=== PATIENT | female | born 1950 | race Hispanic/Latino ===

== ENCOUNTER → 2020-12-07 | Outpatient (CLI) | payer OTHER ==
[~2020-12-07] MED LIST: IOHEXOL 350 MG/ML 100ML INFUS..BTL IV ONE
== END | disposition home or self-care (01) ==
LOC: RAH 10:00
PROVIDERS: ATTEND Internal Medicine Cardiovascular Disease
DX: I65.21 Occlusion and stenosis of right carotid artery (principal); Z86.73 Personal history of transient ischemic attack (TIA), and cerebral infarction without residual deficits
CPT/HCPCS: 70498; Q9967

== ENCOUNTER 2021-01-19 05:56 | Day surgery (SDC) | payer OTHER ==
[2021-01-13 11:38] LABS: BASOPHILS % (AUTO) 1.2 % (0.0-5.0); HEMATOCRIT 42.8 % (36-48); LYMPHOCYTES % (AUTO) 31.4 % (21.0-51.0); MEAN CORPUSCULAR HEMOGLOBIN 32.4 pg (27.0-33.0); MEAN CORPUSCULAR HGB CONC 33.4 g/dL (32.0-36.0); MEAN CORPUSCULAR VOLUME 97.1 fL (79-99); PLATELET COUNT (AUTO) 249 K/uL (130-400); RED BLOOD CELL COUNT(AUTO) 4.41 MIL/uL (4.00-5.50); RED CELL DISTRIBUTION WIDTH 12.7 % (11.0-15.5); WHITE BLOOD COUNT (AUTO) 6.9 K/uL (4.8-10.8)
[2021-01-13 11:39] LABS: APPEARANCE,URINE Clear (CLEAR); BILIRUBIN,URINE Negative (NEGATIVE); COLOR,URINE Yellow (YELLOW); GLUCOSE, URINE (UA) Negative (NEGATIVE); KETONES,URINE Negative (NEGATIVE); LEUKOCYTE ESTERASE ,URINE Negative (NEGATIVE); NITRATE,URINE Negative (NEGATIVE); OCCULT BLOOD,URINE Moderate (NEGATIVE); PROTEIN,URINE Negative (NEGATIVE)
[2021-01-13 11:54] LABS: CREATININE 0.5 mg/dL (0.5-1.5); POTASSIUM 4.1 mmol/L (3.5-5.1)
[2021-01-13 12:02] LABS: BACTERIA,URINE Few /HPF (None Seen); SQUAMOUS EPITHELIAL CELL,UR Moderate /HPF (0-2); WBC,URINE 0-1 /HPF (0-1)
[2021-01-13 12:23] LABS: PROTHROMBIN TIME 10.9 SEC (9.6-11.6)
[2021-01-13 12:25] LABS: PARTIAL THROMBOPLASTIN TIME 29.5 SEC (26.3-35.5)
[2021-01-18 14:30] VITALS: BP 174/73
[~2021-01-19] VITALS: Ht 152.4 cm; Wt 84.4 kg
[2021-01-19] VITALS (18 sets, daily range): BP systolic 109–140; BP diastolic 44–62
[~2021-01-19 05:56] MED LIST changes: +AMLO-258 PO; +CLOP75TA32 PO; +FLUT16H NASAL; +FURO20TA4 PO; +GABA-529 PO; -IOHEXOL 350 MG/ML 100ML INFUS..BTL IV ONE; +LINA145C PO; +MECL-160 PO; +MEMA7CAP2 PO; +MONT10TA32 PO; +OLME20TA22 PO; +OMEP40CA21 PO; +ROSU10TA28 PO; +vitamin b12 PO
[2021-01-19] MEDS ORDERED: 0.9% NACL 500ML IV.SOLN 500 ML IV SCH (06:00)
[2021-01-19] MEDS ORDERED: IOHEXOL 350 MG/ML 100ML INFUS..BTL IV ONE (07:25)
[2021-01-19] MEDS ORDERED: NITROGLYCERIN 2 MG VIAL IV ONE (07:25)
[2021-01-19] MEDS ORDERED: BIVALIRUDIN 250 MG/VIAL IV ONE (07:25)
[2021-01-19] MEDS ORDERED: LIDOCAINE HCL 400MG/20ML VIAL ONE (07:26)
[2021-01-19] MEDS ORDERED: MIDAZOLAM HCL 1 MG/ML 2ML VIAL ONE (07:26)
[2021-01-19] MEDS ORDERED: FENTANYL CITRATE PF 50 MCG/1 ML 2ML VIAL ONE (07:26)
[2021-01-19] MEDS ORDERED: IOHEXOL-350 50ML VIAL IV ONE (07:26)
[2021-01-19] MEDS ORDERED: LABETALOL 20MG SYG IV ONE (08:21)
[2021-01-19] MEDS ORDERED: HYDRALAZINE 20MG/ML VIAL IV PRN (09:00)
[2021-01-19] MEDS ORDERED: NITROGLYCERIN 0.4 MG SL TAB SL PRN (09:00)
[2021-01-19] MEDS ORDERED: 0.9%NACL 1000ML 1,000 ML IV SCH (09:00)
[2021-01-19] MEDS ORDERED: DEXTROSE 50%-WATER 50 ML DISP.SYRIN IV PRN (09:00)
[2021-01-19] MEDS ORDERED: GLUCAGON 1MG KIT 1 MG ML IM PRN (09:00)
[2021-01-19] MEDS ORDERED: METOPROLOL TARTRATE 1 MG/ML 5ML VIAL IV PRN (09:00)
== END 2021-01-19 17:10 | disposition home or self-care (01) ==
LOC: DAH 05:56
PROVIDERS: ATTEND Internal Medicine Cardiovascular Disease
DX: I65.21 Occlusion and stenosis of right carotid artery (principal); I25.118 Atherosclerotic heart disease of native coronary artery with other forms of angina pectoris; I11.0 Hypertensive heart disease with heart failure; I50.33 Acute on chronic diastolic (congestive) heart failure; E78.5 Hyperlipidemia, unspecified; Z82.49 Family history of ischemic heart disease and other diseases of the circulatory system; E66.9 Obesity, unspecified; E86.0 Dehydration; Z68.34 Body mass index [BMI] 34.0-34.9, adult; Z90.49 Acquired absence of other specified parts of digestive tract; M85.80 Other specified disorders of bone density and structure, unspecified site; K21.9 Gastro-esophageal reflux disease without esophagitis; Z86.73 Personal history of transient ischemic attack (TIA), and cerebral infarction without residual deficits; Z79.02 Long term (current) use of antithrombotics/antiplatelets; Z79.899 Other long term (current) drug therapy
CPT/HCPCS: 36223; 36415; 71045; 80048; 81001; 85025; 85610; 85730; 93005; 93458; 96360; 96361; A4215 ×2; A4221 ×2; A4222 ×2; A4223 ×2; A4335; A4663 ×2; A6402; C1760 ×3; C1894 ×2; J1644; J3490 ×2; Q9965 ×2; Q9967 ×2; J0583; J2250; J3010

== ENCOUNTER 2021-02-04 08:00 | Inpatient (IN) | payer OTHER ==
[~2021-02-04] VITALS: Ht 152.4 cm; Wt 86.2 kg
[~2021-02-04 08:00] MED LIST changes: -AMLO-258 PO
[2021-02-07 10:59] LABS: BASOPHILS % (AUTO) 0.6 % (0.0-5.0); EOSINOPHILS % (AUTO) 3.1 % (0.0-8.0); HEMATOCRIT 39.6 % (36-48); LYMPHOCYTES % (AUTO) 35.4 % (21.0-51.0); MEAN CORPUSCULAR HEMOGLOBIN 33.4 pg (27.0-33.0); MEAN CORPUSCULAR HGB CONC 34.3 g/dL (32.0-36.0); MEAN CORPUSCULAR VOLUME 97.3 fL (79-99); MONOCYTES % (AUTO) 11.1 % (3.0-13.0); NEUTROPHILS % (AUTO) 49.5 % (40.0-77.0); PLATELET COUNT (AUTO) 244 K/uL (130-400); RED BLOOD CELL COUNT(AUTO) 4.07 MIL/uL (4.00-5.50); RED CELL DISTRIBUTION WIDTH 12.5 % (11.0-15.5); WHITE BLOOD COUNT (AUTO) 6.5 K/uL (4.8-10.8)
[2021-02-07 11:06] LABS: CREATININE 0.5 mg/dL (0.5-1.5); POTASSIUM 3.9 mmol/L (3.5-5.1)
[2021-02-07 12:21] VITALS: BP 160/75
[2021-02-07] MEDS ORDERED: AMLO-258 PO (13:13)
[2021-02-08] VITALS (10 sets, daily range): BP systolic 118–177; BP diastolic 51–64
[2021-02-08] MEDS: CEFAZOLIN SODIUM 1 GM VIAL IVP SCH ×4 (06:00→23:10)
[2021-02-08] MEDS ORDERED: LACTATED RINGERS 1000ML 1,000 ML IV ONE ×2 (06:42→11:11)
[2021-02-08] MEDS ORDERED: BUPIVACAINE/EPI/PF 0.5% 30ML VIAL IJ ONE (06:53)
[2021-02-08] MEDS ORDERED: CEFAZOLIN SODIUM 1 GM VIAL ONE (06:53)
[2021-02-08] MEDS ORDERED: BUPIVACAINE/EPI/PF 0.25% 10ML VIAL IJ ONE (06:53)
[2021-02-08] MEDS ORDERED: THROMBIN-JMI 5000 UNIT/VIAL TP ONE (06:54)
[2021-02-08] MEDS ORDERED: LIDOCAINE HCL 1% MDV 50ML VIAL ONE (07:14)
[2021-02-08] MEDS ORDERED: SUCCINYLCHOLINE CHLORIDE 20 MG/ML 10 ML VIAL ONE (07:17)
[2021-02-08] MEDS ORDERED: MIDAZOLAM HCL 1 MG/ML 2ML VIAL ONE (07:18)
[2021-02-08] MEDS ORDERED: PROPOFOL 10 MG/ML 20ML VIAL IV ONE (07:18)
[2021-02-08] MEDS ORDERED: LIDOCAINE PF 100MG/5ML (2%) SYRINGE 5ML ONE (07:18)
[2021-02-08] MEDS ORDERED: ROCURONIUM 10MG/1ML SYR 10 MG/ML ML ONE ×2 (07:18→09:09)
[2021-02-08] MEDS ORDERED: MANNITOL 20% IV ONE (07:32)
[2021-02-08] MEDS ORDERED: DEXAMETHASONE SOD PHOSPHATE 10MG/ML 1ML VIAL ONE (07:54)
[2021-02-08] MEDS ORDERED: ARTIFICIAL TEARS 3.5 GM OINTMENT ONE (07:57)
[2021-02-08] MEDS ORDERED: FENTANYL CITRATE PF 50 MCG/1 ML 2ML VIAL ONE (08:01)
[2021-02-08] MEDS ORDERED: HEPARIN 10,000 UNIT/10ML (1,000 UNIT/ML) VIAL ONE (08:45)
[2021-02-08] MEDS: ***HM***(Linaclotide (Linzess) 145 MCG) PO SCH (09:00)
[2021-02-08] MEDS: FLUTICASONE PROPIONATE 50MCG/SPRAY 16 GM BOTTLE NS SCH (09:00)
[2021-02-08] MEDS ORDERED: PHENYLEPHRINE HCL 10 MG/ML 1ML VIAL IV ONE (09:08)
[2021-02-08] MEDS ORDERED: GLYCOPYRROLATE 1 MG/5 ML SYRINGE ONE (09:57)
[2021-02-08] MEDS ORDERED: NEOSTIGMINE 5MG/5ML SYR IV ONE (09:57)
[2021-02-08] MEDS ORDERED: ONDANSETRON 4MG INJ ONE (09:58)
[2021-02-08] MEDS ORDERED: CEFAZOLIN SODIUM 1 GM VIAL IVP SCH (11:00)
[2021-02-08] MEDS ORDERED: MORPHINE 2 MG SYG IVP PRN (11:00)
[2021-02-08] MEDS: DEXAMETHASONE SOD PHOSPHATE 4 MG/ML 1ML VIAL IVP SCH ×2 (11:00→23:10)
[2021-02-08] MEDS: AMLODIPINE 5 MG TAB PO SCH (11:12)
[2021-02-08] MEDS: LOSARTAN 100 MG TABLET PO SCH (11:15)
[2021-02-08] MEDS: PANTOPRAZOLE 40 MG TAB DR PO SCH (11:16)
[2021-02-08] MEDS ORDERED: NOREPINEPHRINE 4MG/NS 250ML 250 ML IV SCH (12:00)
[2021-02-08] MEDS: MONTELUKAST SODIUM 10 MG TAB PO SCH (12:00)
[2021-02-08] MEDS: LACTATED RINGERS IV SCH ×2 (13:37→21:44)
[2021-02-08] MEDS: HEPARIN IV SCH ×2 (13:37→21:44)
[2021-02-08] MEDS: HYDROCODONE/ACETAMINOPHEN 5/325 MG TAB PO PRN ×2 (16:51→23:04)
[2021-02-08] MEDS ORDERED: MEMANTINE HCL 7 MG PO SCH (21:00)
[2021-02-08] MEDS: ATORVASTATIN 20 MG TABLET PO SCH ×2 (21:00→21:44)
[2021-02-08] MEDS ORDERED: GABAPENTIN 100 MG CAPSULE PO SCH (21:00)
[2021-02-09 04:00] VITALS: BP 130/55
[2021-02-09] MEDS: HYDROCODONE/ACETAMINOPHEN 5/325 MG TAB PO PRN (05:57)
[2021-02-09] MEDS: DEXAMETHASONE SOD PHOSPHATE 4 MG/ML 1ML VIAL IVP SCH ×2 (05:57→12:46)
[2021-02-09 08:00] VITALS: BP 140/68
[2021-02-09] MEDS ORDERED: CYANOCOBALAMIN (VITAMIN B-12) 100 MCG TABLET PO SCH (09:00)
[2021-02-09] MEDS: ***HM***(Linaclotide (Linzess) 145 MCG) PO SCH (09:00)
[2021-02-09] MEDS ORDERED: MECLIZINE HCL 25 MG TABLET PO SCH (09:00)
[2021-02-09] MEDS ORDERED: FUROSEMIDE 20 MG TABLET PO SCH (09:00)
[2021-02-09] MEDS: LOSARTAN 100 MG TABLET PO SCH (09:48)
[2021-02-09] MEDS: CEFAZOLIN SODIUM 1 GM VIAL IVP SCH (09:49)
[2021-02-09 10:00] VITALS: BP 132/64
[2021-02-09] MEDS: AMLODIPINE 5 MG TAB PO SCH (10:04)
[2021-02-09] MEDS: PANTOPRAZOLE 40 MG TAB DR PO SCH (10:05)
[2021-02-09] MEDS: FLUTICASONE PROPIONATE 50MCG/SPRAY 16 GM BOTTLE NS SCH (10:31)
[2021-02-09] MEDS: LACTATED RINGERS IV SCH (10:39)
[2021-02-09] MEDS: HEPARIN IV SCH (10:39)
[2021-02-09 12:00] VITALS: BP 148/61
[2021-02-09] MEDS: MONTELUKAST SODIUM 10 MG TAB PO SCH (12:00)
== END 2021-02-09 16:37 | disposition home or self-care (01) | DRG 39 ==
LOC: EDSTATUS 02-07 09:00 → DAHIP 02-08 06:05 → 2DH 02-08 09:46
PROVIDERS: ADMIT Neurological Surgery; ATTEND Neurological Surgery
PROC: 03CK0ZZ Extirpation of Matter from Right Internal Carotid Artery, Open Approach (ICD-10-PCS; principal; 2021-02-08 07:43)
PROC: 03HY32Z Insertion of Monitoring Device into Upper Artery, Percutaneous Approach (ICD-10-PCS; 2021-02-08 07:43)
DX: I65.21 Occlusion and stenosis of right carotid artery (principal); I10 Essential (primary) hypertension; I25.10 Atherosclerotic heart disease of native coronary artery without angina pectoris; E78.5 Hyperlipidemia, unspecified; Z20.822 Contact with and (suspected) exposure to COVID-19; G89.29 Other chronic pain; M85.80 Other specified disorders of bone density and structure, unspecified site; Z90.49 Acquired absence of other specified parts of digestive tract
CPT/HCPCS: 36415; 71045; 80048; 85025; 87635; 88304; 88311; A4344; J0330; J0690; J1100; J1644; J2001; J2250; J2370; J2405; J2704; J2710; J3010; J3490; J7030; J7040; J7120